=== PATIENT | male | born 2000 | race Caucasian/White ===

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

== ENCOUNTER 2021-04-27 08:00 | Outpatient (CLI) | payer OTHER ==
--- NOTE | 2021-04-27 16:47 | XRAY Report ---
PROCEDURE: Finger(s) RT INDICATIONS: CRUSHING INJURY OF R MIDDLE FINGER TECHNIQUE: AP hand, 2 views of the third finger(s) acquired. COMPARISON: None. FINDINGS: BONES: No acute, displaced fracture or dislocation. SOFT TISSUES: No focal abnormality. IMPRESSION: 1.No acute osseous abnormality. Reviewed by: Cole Thao MD on 04/27/2021 4:46 PM PST Approved by: Cole Thao MD on 04/27/2021 4:46 PM PST Station ID: [id number]
== END 2021-04-27 23:59 ==
LOC: DI.N 08:00
PROVIDERS: ATTEND Family Medicine
DX: S67.192A Crushing injury of right middle finger, initial encounter (principal)

== ENCOUNTER 2021-11-23 20:39 | Emergency (ER) | payer OTHER ==
[2021-11-23] MEDS ORDERED: KETOROLAC 60 MG/2 ML VIAL IM STA (21:40)
--- NOTE | 2021-11-23 21:49 | ED Physician Documentation ---
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 To some extent he has pain every day, but gets flares every few months where he gets numbness in the anterior right leg. He has had the current flare for about a week after lifting a box while moving. There was no other specific trauma. He denies saddle anesthesia, fevers, incontinence. He has been taking diazepam which is only somewhat effective. He is not on any anti-inflammatories. Review of Systems Constitutional: denies: Fever, Chills Ears: reports: Reviewed and negative Nose: reports: Reviewed and negative Throat: reports: Reviewed and negative Cardiac: reports: Reviewed and negative PD PAST MEDICAL HISTORY - Past Medical History Past Medical History: Yes Cardiovascular: None Respiratory: None Neuro: None Endocrine/Autoimmune: None GI: None : None HEENT: None Psych: None Musculoskeletal: None Derm: None - Past Surgical History Past Surgical History: No - Present Medications Home Medications: Ambulatory Orders Medication Instructions Recorded Confirmed Ibuprofen [Motrin] 600 mg PO TID PRN #25 tab 08/03/19 cephALEXin [Keflex] 500 mg PO TID #20 capsule 08/03/19 dexAMETHasone [Decadron] 4 mg PO DAILY #5 tablet 08/03/19 Meloxicam [Mobic] 7.5 mg PO BID PRN #20 tablet 11/23/21 - Allergies Allergies/Adverse Reactions: Allergies Allergy/AdvReac Type Severity Reaction Status Date / Time No Known Drug Allergies Allergy Verified 11/23/21 20:51 - Social History Does the pt smoke?: No Smoking Status: Never smoker Does the pt drink ETOH?: No Does the pt have substance abuse?: No - Immunizations Immunizations are current?: Yes - POLST Patient has POLST: No PD ED PE NORMAL - Vitals Vital signs reviewed: Yes - General General: Alert and oriented X 3, No acute distress - HEENT HEENT: PERRL, EOMI - Neck Neck: Supple, no meningeal sign, No bony TTP - Cardiac Cardiac: RRR, No murmur - Respiratory Respiratory: No respiratory distress, Clear bilaterally - Back Back: Other (Mild tenderness of the low lumbar spine without limited range of motion but does wince with motion.) - Derm Derm: Normal color, Warm and dry - Extremities Extremities: Other (He has some numbness on the right lower leg below the knee both sides, otherwise strength and sensation and reflexes are normal throughout the lower extremities.) - Neuro Neuro: Alert and oriented X 3, Normal speech Eye Opening: Spontaneous Motor: Obeys Commands Verbal: Oriented GCS Score: 15 Results - Vitals Vitals: Vital Signs - 24 hr 11/23/21 20:47 Temperature 36.4 C L Heart Rate 78 Respiratory 14 Rate Blood Pressure 132/63 H O2 Saturation 98 Oxygen O2 Source Room air PD MEDICAL DECISION MAKING - ED course Complexity details: reviewed old records ED course: This patient has seemingly uncomplicated musculoskeletal back pain. The patient has no "red flags." Specifically denies IV drug use, fevers, incontinence, saddle anesthesia. Spinal epidural abscess was considered, given that the patient has no fever, is not diabetic, has no spinal tenderness, does not use IV drugs, and has no bilateral neurologic symptoms, the diagnosis of spinal epidural abscess is considered exceedingly unlikely. Departure - Departure Disposition: 01 Home, Self Care Clinical Impression: Sciatica Qualifiers: Laterality: right Qualified Code(s): M54.31 - Sciatica, right side Condition: Good Record reviewed to determine appropriate education?: Yes Instructions: ED Sciatica Prescriptions: Meloxicam [Mobic] 7.5 mg PO BID PRN #20 tablet PRN Reason: Pain Comments: You are seen today for what sounds like an exacerbation of chronic sciatica. You received a shot of Toradol and I am prescribing an anti-inflammatory. Talk with your doctor about further evaluation and treatment, since this is been going on for months to years consideration for MRI. Return for new or worsening symptoms. You can add the anti-inflammatory prescribed here to your diazepam. Forms: Activity restrictions
[2021-11-23 21:58] VITALS: BP 128/62
== END 2021-11-23 21:57 | disposition home or self-care (01) ==
LOC: ED 20:39
DX: M54.31 Sciatica, right side (principal)
CPT/HCPCS: 96372; 99283; 99284